=== PATIENT | male | born 1995 | race Caucasian/White ===

== ENCOUNTER 2017-08-06 14:09 | Outpatient (CLI) | payer OTHER ==
[2014-09-21 20:04] VITALS: BP 128/60
== END 2017-08-06 14:10 ==
LOC: POD 14:09
PROVIDERS: ATTEND Podiatrist
DX: B35.1 Tinea unguium (principal); B35.3 Tinea pedis; L84 Corns and callosities
CPT/HCPCS: 99203

== ENCOUNTER 2017-12-12 14:37 | Outpatient (CLI) | payer OTHER ==
[2014-09-21 20:04] VITALS: BP 128/60
== END 2017-12-12 14:40 ==
LOC: LAB 14:37
PROVIDERS: ATTEND Family Medicine
DX: Z71.1 Person with feared health complaint in whom no diagnosis is made (principal)
CPT/HCPCS: 36415; 86703; 86803; 87491; 87591